=== PATIENT | female | born 1985 | race American Indian/Alaskan Native ===

== ENCOUNTER 2016-07-09 16:42 | Emergency (ER) | payer BC, OTHER ==
--- NOTE | 2016-07-09 17:00 | EDM.PDOC ---
ED HPI Trauma - General Chief Complaint: Lower Extremity Injury/Pain Stated Complaint: INJURY TO ANKLE Time Seen by Provider: 07/09/16 17:00 Source: Reports: Patient, RN, RN notes reviewed History Limitations: Reports: No limitations - History of Present Illness INITIAL COMMENTS - FREE TEXT/NARRATIVE: Patient arrives by POV complaining of right ankle pain sustained when she "rolled" her ankle on the stairs in her home at 11 a.m. today. Denies any other injury. Symptom Onset Date: 07/09/16 Occurred Where: home Method of Injury: fall Severity: severe Pain/Injury Location: Reports: lower extremity, right Associated Symptoms: Reports: no other symptoms Allergies/ADRs: Allergies ketorolac tromethamine [From Toradol] Allergy (Verified 09/30/14 14:14) Nausea and Vomiting Home Medications: Ambulatory Orders . [No Known Home Meds] 07/09/16 [Confirmed 07/09/16] Past Medical History - Past Health History Medical/Surgical History: Denies Medical/Surgical History Other Genitourinary History: pelvic fracture requiring bladder repair Other OB/BYN History: IUD placed in DEC. - Past Surgical History Other HEENT Surgeries/Procedures: nasal fracture with surgery Other Musculoskeletal Surgeries/Procedures:: pelvic fractures x2 Social & Family History - Family History Family Medical History: Noncontributory - Tobacco Use Smoking Status *Q: Current Every Day Smoker Years of Tobacco use: 5 Packs/Tins Daily: 0.1 Used Tobacco, but Quit: Yes Month Tobacco Last Used: june Second Hand Smoke Exposure: No - Alcohol Use Days Per Week of Alcohol Use: 0 - Recreational Drug Use Recreational Drug Use: No Review of Systems - Review of Systems Review Of Systems: ROS reveals no pertinent complaints other than HPI. Trauma Exam - Physical Exam Exam: See Below Exam Limited By: No limitations General Appearance: Reports: alert, WD/WN, no apparent distress Neck: Reports: non-tender, full range of motion, normal alignment, normal inspection Respiratory Exam: Reports: no respiratory distress Cardiovascular: Reports: normal peripheral pulses Back: Reports: full range of motion, normal inspection, non-tender Extremities: Reports: other (right lateral ankle swelling or tenderness, mild bruising. No deformity. 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, no motor/sensory deficits, alert , normal mood/affect, oriented x 3 Skin: Reports: Normal color, Warm/dry Course - Vital Signs Last Recorded V/S: Last Vital Signs Temp 37.3 C 07/09/16 17:17 Pulse 76 07/09/16 17:14 Resp 20 07/09/16 17:14 BP 118/65 07/09/16 17:17 Pulse Ox 98 07/09/16 17:17 - Orders/Labs/Meds Orders: Active Orders 24 hr Category Date Time Status Splinting [RC] ASDIRECTED Care 07/09/16 17:44 Active Ankle Min 3V Rt [CR] Stat Exams 07/09/16 17:21 Taken DME for Discharge [COMM] Routine Oth 07/09/16 17:43 Ordered Meds: Medications Discontinued Medications Generic Name Dose Route Start Last Admin Trade Name Dereck PRN Reason Stop Dose Admin Hydrocodone Bitart/Acetaminophen 1 tab 07/09/16 17:31 [place] 325-10 Mg PO 07/09/16 17:32 ONETIME ONE - Radiology Interpretation Free Text/Narrative:: Right ankle x-ray: No fracture per rad report. Departure - Departure Time of Disposition: 17:46 Disposition: Home, Self-Care 01 Condition: good Clinical Impression: Ankle sprain Qualifiers: Encounter type: initial encounter Involved ligament of ankle: unspecified ligament Laterality: right Qualified Code(s): S93.401A - Sprain of unspecified ligament of right ankle, initial encounter Instructions: Ankle Sprain, [id number] Forms: ED Department Discharge Additional Instructions: Rest, ice and elevate right pain to reduce pain and swelling. Use splint and crutches as needed for discomfort for 5 to 7 days. Follow up in clinic for recheck in 5 to 7 days. Tramadol [address] while under the influence of this medication. - My Orders Last 24 Hours: My Active Orders 07/09/16 17:21 Ankle Min 3V Rt [CR] Stat 07/09/16 17:43 DME for Discharge [COMM] Routine 07/09/16 17:44 Splinting [RC] ASDIRECTED - Assessment/Plan Last 24 Hours: My Active Orders 07/09/16 17:21 Ankle Min 3V Rt [CR] Stat 07/09/16 17:43 DME for Discharge [COMM] Routine 07/09/16 17:44 Splinting [RC] ASDIRECTED
[2016-07-09 17:18] VITALS: BP 118/65
[2016-07-09] MEDS ORDERED: Acetaminophen/HYDROcodone 325-10 MG Tab PO ONE (17:31)
== END 2016-07-09 18:00 | disposition home or self-care (01) ==
LOC: DL.ED 16:42
DX: S93.401A Sprain of unspecified ligament of right ankle, initial encounter (principal); F17.210 Nicotine dependence, cigarettes, uncomplicated; Z88.5 Allergy status to narcotic agent; W10.9XXA Fall (on) (from) unspecified stairs and steps, initial encounter; Y92.009 Unspecified place in unspecified non-institutional (private) residence as the place of occurrence of the external cause
CPT/HCPCS: 73610; 99284; A9270

== ENCOUNTER 2023-07-11 17:05 | Emergency (ER) | payer OTHER ==
[2023-07-11 17:25] VITALS: BP 158/138; PULSE 89
== END 2023-07-11 17:41 | disposition left against medical advice (07) ==
LOC: DL.ED 17:05
DX: M25.571 Pain in right ankle and joints of right foot (principal); X50.1XXA Overexertion from prolonged static or awkward postures, initial encounter; Y93.01 Activity, walking, marching and hiking; Z88.5 Allergy status to narcotic agent
CPT/HCPCS: 73610-RT; 73630-RT; 99282; 99283

== ENCOUNTER 2023-12-21 17:12 | Emergency (ER) | payer OTHER ==
[2023-12-21] MEDS: Sodium Chloride 0.9% 1,000 ML IV ONE ×2 (17:27→19:42)
[2023-12-21] MEDS: cefTRIAXone 1 GM Vial IVPUSH ONE (17:27)
[2023-12-21] MEDS: Diphtheria,Pertussis(Acell),Tetanus Vaccine 0.5 ML Syringe IM ONE (17:28)
[2023-12-21 17:29] LABS: BASOPHILS PERCENT AUTO 0.2 % (0.0-1.0); EOSINOPHILS PERCENT AUTO 0.5 % (1.0-3.0); HEMATOCRIT 42.3 % (37.0-47.0); HEMOGLOBIN 14.8 g/dL (12.0-16.0); MEAN CORPUSCULAR HEMOGLOBIN 36.5 pg (27.0-34.0); MEAN CORPUSCULAR VOLUME 104.2 fL (80-100); MONOCYTES PERCENT AUTO 6.3 % (2-8); PLATELET COUNT,PLT 191 10^3/uL (150-450); RED BLOOD CELL COUNT 4.06 10^6/uL (4.2-5.4); WHITE BLOOD CELL COUNT,WBC 8.7 10^3/uL (5.0-10.0)
[2023-12-21 17:34] VITALS: BP 164/107; PULSE 107
[2023-12-21 17:50] LABS: A/G RATIO 0.69; ALBUMIN 3.1 g/dL (3.4-5.0); ANION GAP 13.4 mEq/L (7-13); BILIRUBIN TOTAL 0.8 mg/dL (0.2-1.0); BUN/CREATININE RATIO 10.2 (No establ ref range); CALCIUM 9.1 mg/dL (8.5-10.1); CREATININE 0.88 mg/dL (0.55-1.02); EST CRCL DRUG DOSING (CG) 81.14 mL/min; POTASSIUM,K 3.4 mmol/L (3.5-5.1); PROTEIN TOTAL,TP 7.6 g/dL (6.4-8.2)
[2023-12-21] MEDS: Ondansetron 4 MG/2 ML SDV IVPUSH ONE (18:26)
[2023-12-21] MEDS: Morphine 2 MG/ML SYRINGE IVPUSH ONE (18:26)
[2023-12-21] MEDS: Lidocaine 1% with EPINEPHrine 1:100,000 20 ML MDV ONE (18:27)
[2023-12-21] MEDS: Iopamidol 612 MG/ML 100 ML Bottle IVPUSH ONE (18:32)
[2023-12-21] MEDS: Lidocaine 1% with EPINEPHrine 1:100,000 20 ML MDV INJECT ONE (18:38)
[2023-12-21] MEDS: chlordiazePOXIDE 25 MG Cap PO ONE (19:42)
[2023-12-21] MEDS ORDERED: Naloxone 2 MG/2 ML Syringe IVPUSH PRN (20:27)
[2023-12-21] MEDS: Potassium Chloride 10 MEQ Tab.ER PO ONE (20:45)
[2023-12-21] MEDS ORDERED: Flumazenil 0.1 MG/ML 5 ML MDV IVPUSH PRN (20:45)
[2023-12-21] MEDS: fentaNYL 100 MCG/2 ML SDV IVPUSH ONE (20:45)
[2023-12-21] MEDS: LORazepam 2 MG/ML SDV IVPUSH ONE (20:53)
[2023-12-21 20:59] LABS: APPEARANCE,URINE SLIGHTLY CLOUDY (CLEAR); BILIRUBIN,URINE NEGATIVE (NEGATIVE); COLOR,URINE YELLOW (YELLOW); GLUCOSE,URINE NEGATIVE (NEGATIVE); KETONES,URINE 15 (NEGATIVE); LEUKOCYTE ESTERASE,URINE SMALL (NEGATIVE); NITRITE,URINE POSITIVE (NEGATIVE); OCCULT BLOOD,URINE SMALL (NEGATIVE); PH,URINE 6.5 (5.0-9.0); PROTEIN,URINE NEGATIVE (NEGATIVE); UROBILINOGEN,URINE 0.2 mg/dL (0.2-1.0)
[2023-12-21 21:05] LABS: AMPHETAMINES,URINE POSITIVE (NEGATIVE); BARBITURATES,URINE NEGATIVE (NEGATIVE); BENZODIAZEPINE,URINE NEGATIVE (NEGATIVE); MDMA (ECSTASY), URINE NEGATIVE (NEGATIVE); METHADONE,URINE NEGATIVE (NEGATIVE); METHAMPHETAMINES,URINE POSITIVE (NEGATIVE); OPIATES,URINE POSITIVE (NEGATIVE); OXYCODONE,URINE NEGATIVE (NEGATIVE); PHENCYCLIDINE,URINE NEGATIVE (NEGATIVE); TCA,URINE NEGATIVE (NEGATIVE)
[2023-12-21] MEDS ORDERED: LORazepam 2 MG/ML SDV IVPUSH ONE (21:13)
[2023-12-21] MEDS ORDERED: cefTRIAXone 2 GM in Sodium Chloride 0.9% 100 ML IV ONE (21:13)
[2023-12-21 21:15] LABS: BACTERIA,URINE MANY /HPF (0-FEW/HPF); EPITHELIAL CELLS,URINE MODERATE /HPF (NOT SEEN); WBC,URINE SEMI-PACKED /HPF (0-5/HPF)
== END 2023-12-21 21:32 | disposition left against medical advice (07) ==
LOC: DL.ED 17:12
DX: S01.01XA Laceration without foreign body of scalp, initial encounter (principal); S61.210A Laceration without foreign body of right index finger without damage to nail, initial encounter; K08.11 Complete loss of teeth due to trauma; F15.10 Other stimulant abuse, uncomplicated; N30.01 Acute cystitis with hematuria; Z23 Encounter for immunization; Z88.5 Allergy status to narcotic agent; V39.3XXA Occupant (driver) (passenger) of three-wheeled motor vehicle injured in unspecified nontraffic accident, initial encounter
CPT/HCPCS: 12001; 36415; 70450; 70486; 71260; 72125; 73030-RT; 74177; 80053; 80305-QW; 80307; 81001; 84484; 84703; 85025; 87086; 90471; 90715; 93005; 96374; 96375; 99285-25; A9270-GY; J0696; J2060; J2270; J2405; J3010; J3490; J7030; Q9967

== ENCOUNTER 2024-04-12 16:38 | Emergency (ER) | payer SELFPAY ==
[2024-04-12] MEDS ORDERED: Sodium Chloride 0.9% 10 ML Syringe FLUSH PRN (16:59)
[2024-04-12 17:05] LABS: APPEARANCE,URINE CLEAR (CLEAR); BILIRUBIN,URINE NEGATIVE (NEGATIVE); COLOR,URINE YELLOW (YELLOW); GLUCOSE,URINE NEGATIVE (NEGATIVE); KETONES,URINE NEGATIVE (NEGATIVE); LEUKOCYTE ESTERASE,URINE NEGATIVE (NEGATIVE); NITRITE,URINE NEGATIVE (NEGATIVE); OCCULT BLOOD,URINE NEGATIVE (NEGATIVE); PH,URINE 5.5 (5.0-9.0); PROTEIN,URINE NEGATIVE (NEGATIVE); UROBILINOGEN,URINE 0.2 mg/dL (0.2-1.0)
[2024-04-12 17:06] LABS: AMPHETAMINES,URINE NEGATIVE (NEGATIVE); BARBITURATES,URINE NEGATIVE (NEGATIVE); BENZODIAZEPINE,URINE NEGATIVE (NEGATIVE); MDMA (ECSTASY), URINE NEGATIVE (NEGATIVE); METHADONE,URINE NEGATIVE (NEGATIVE); METHAMPHETAMINES,URINE NEGATIVE (NEGATIVE); OPIATES,URINE NEGATIVE (NEGATIVE); OXYCODONE,URINE NEGATIVE (NEGATIVE); PHENCYCLIDINE,URINE NEGATIVE (NEGATIVE); TCA,URINE NEGATIVE (NEGATIVE)
[2024-04-12 17:19] LABS: BASOPHILS PERCENT AUTO 0.4 % (0.0-1.0); HEMATOCRIT 43.6 % (37.0-47.0); HEMOGLOBIN 14.4 g/dL (12.0-16.0); LYMPHOCYTES PERCENT AUTO 19.2 % (20.5-50.1); MEAN CORPUSCULAR HEMOGLOBIN 33.8 pg (27.0-34.0); MEAN CORPUSCULAR VOLUME 102.3 fL (80-100); MONOCYTES PERCENT AUTO 6.5 % (2-8); NEUTROPHILS PERCENT AUTO 69.9 % (42.2-75.2); PLATELET COUNT,PLT 284 10^3/uL (150-450); RED BLOOD CELL COUNT 4.26 10^6/uL (4.2-5.4); WHITE BLOOD CELL COUNT,WBC 11.4 10^3/uL (5.0-10.0)
[2024-04-12 17:46] LABS: ALANINE AMINOTRANSFERASE,ALT 18 U/L (14-59); ALBUMIN 3.3 g/dL (3.4-5.0); ALKALINE PHOSPHATASE 147 U/L (46-116); ANION GAP 12.8 mEq/L (7-13); ASPARTATE AMNIOTRANSFERASE,AST 26 U/L (15-37); BILIRUBIN TOTAL 0.1 mg/dL (0.2-1.0); BLOOD UREA NITROGEN,BUN 10 mg/dL (7-18); BUN/CREATININE RATIO 13.5 (No establ ref range); CALCIUM 8.2 mg/dL (8.5-10.1); CARBON DIOXIDE,CO2 29 mmol/L (21-32); CHLORIDE,CL 107 mmol/L (98-107); CREATININE 0.74 mg/dL (0.55-1.02); GLUCOSE RANDOM 118 mg/dL (70-99); MAGNESIUM 2.2 mg/dL (1.8-2.4); POTASSIUM,K 3.8 mmol/L (3.5-5.1); PROTEIN TOTAL,TP 7.9 g/dL (6.4-8.2); SODIUM,NA 145 mmol/L (136-145); TSH ULTRASENSITIVE 0.48 uIU/mL (0.36-3.74)
[2024-04-12 17:47] LABS: A/G RATIO 0.72; ACETAMINOPHEN 0 ug/mL (10-30 (Therapeutic)); ESTIMATED GFR 105 mL/min (>=60)
[2024-04-12 17:48] LABS: ETHANOL BLOOD MEDICAL 403 mg/dL (0)
[2024-04-13 04:14] VITALS: BP 116/65; PULSE 109
== END 2024-04-13 04:12 | disposition home or self-care (01) ==
LOC: DL.ED 16:38
DX: F10.129 Alcohol abuse with intoxication, unspecified (principal); R45.851 Suicidal ideations; F17.210 Nicotine dependence, cigarettes, uncomplicated; Z86.16 Personal history of COVID-19; Z88.5 Allergy status to narcotic agent; Z79.899 Other long term (current) drug therapy; Y90.8 Blood alcohol level of 240 mg/100 ml or more
CPT/HCPCS: 36415; 80053; 80143; 80179; 80305-QW; 80307; 81003; 83735; 84443; 85025; 99285

== ENCOUNTER 2024-10-29 18:37 | Emergency (ER) | payer SELFPAY ==
[2024-10-29 19:10] VITALS: BP 156/105; PULSE 109
== END 2024-10-29 20:10 | disposition home or self-care (01) ==
LOC: DL.ED 18:37
DX: S01.01XA Laceration without foreign body of scalp, initial encounter (principal); Z88.5 Allergy status to narcotic agent; Z79.899 Other long term (current) drug therapy; Y04.8XXA Assault by other bodily force, initial encounter
CPT/HCPCS: 70450; 72125; 99283; 99284; A9270